=== PATIENT | male | born 1935 | race Caucasian/White ===

== ENCOUNTER → 2016-10-24 | Outpatient (CLI) | payer MEDICARE, OTHER ==
[~2016-10-24] MED LIST: ACCUPRIL40 MG PO; ACETAMINOPHEN650 M3 PO; ALPRAZOLAM0.5 MG PO; ASPIRIN81 M1 PO; ASPIRIN81 M2 PO; COZAAR PO; FLONASE 0.05% N16 G1; HYDRALAZINE HCL25 MG PO; HYDROCODON-ACE1 EAC9 PO; LASIX PO; LIPITOR20 MG; LIPITOR20 MG PO; LOSARTAN-HCTZ1 EAC1 PO; METOPROLOL SUCC25 MG PO; METOPROLOL TAR25 MG PO; NITROGLYGERIN0.4 MG SL; NITROSTAT0.4 MG SL; PHENERGAN25 MG PO; PRILOSEC20 MG PO; PROAIR RESPICL90 MCG; ROBAXIN 750750 MG; ROBAXIN 750750 MG PO; SODIUM CHLORIDE1 GM PO; TESSALON PERLE100 M1 PO; TOPROL XL50 MG PO; TYLENOL #3; TYLENOL #3 PO; XANAX0.5 MG PO
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
== END | disposition home or self-care (01) ==
LOC: CMRI 13:00
DX: G89.29 Other chronic pain (principal); M47.896 Other spondylosis, lumbar region; M47.892 Other spondylosis, cervical region; M48.02 Spinal stenosis, cervical region; M47.894 Other spondylosis, thoracic region; M51.24 Other intervertebral disc displacement, thoracic region; G95.89 Other specified diseases of spinal cord; N28.89 Other specified disorders of kidney and ureter; Z98.890 Other specified postprocedural states; Z79.891 Long term (current) use of opiate analgesic
CPT/HCPCS: 72141; 72146; 72148